=== PATIENT | female | born 1960 | race Caucasian/White ===

== ENCOUNTER 2018-06-24 03:39 | Emergency (ER) | payer OTHER ==
[~2018-06-24] VITALS: Ht 162.6 cm; Wt 82.7 kg
[2018-06-24 03:44] VITALS: Ht 162.6 cm; Wt 82.7 kg
[2018-06-24] MEDS ORDERED: DICLOFENAC SODI50 MG PO (03:46)
[2018-06-24] MEDS ORDERED: BACLOFEN10 MG PO (03:46)
[2018-06-24 04:17] LABS: KETONE - SERUM NEGATIVE (NEGATIVE)
[2018-06-24 04:19] LABS: BASOPHILS 0.4 % (0-2); EOSINOPHILS 1.2 % (0-7); HEMATOCRIT 42.3 % (36.0-48.0); HEMOGLOBIN 14.5 g/dL (12-16); IMMATURE GRANULOCYTES 0.2 % (0-5); LYMPHOCYTES 29.8 % (15-50); MCH 32.3 pg (26.0-34.0); MCHC 34.3 g/dL (31.0-37.0); MCV 94.2 fL (80.0-100.0); MEAN PLATELET VOLUME 10.1 fL (7.4-10.4); MONOCYTES 7.6 % (2-11); NEUTROPHILS 60.8 % (40-80); PLATELET COUNT 154 10x3/uL (130-400); RBC 4.49 10x6/uL (4.00-5.40); WBC 8.1 10x3/uL (4.8-10.8)
[2018-06-24 04:26] LABS: ALBUMIN 3.8 g/dL (3.4-5.0); ALKALINE PHOSPHATASE 68 U/L (46-116); ALT (SGPT) 28 U/L (10-68); BILIRUBIN - TOTAL 0.27 mg/dL (0.2-1.3); CALC OSMOLALITY 281 mosm/kg (275-300); CALCIUM 8.9 mg/dL (8.5-10.1); CARBON DIOXIDE 25.2 mmol/L (21.0-32.0); CHLORIDE - SERUM 105 mmol/L (98-107); CREATININE - SERUM 0.8 mg/dL (0.6-1.3); GLUCOSE 116 mg/dL (74-106); PROTEIN - SERUM 7.3 g/dL (6.4-8.2); SODIUM 140 mmol/L (136-145); UREA NITROGEN 19 mg/dL (7-18); eGFR NON AFRICAN AMERICAN 79 mL/min (90-120)
[2018-06-24 04:29] LABS: CREATINE KINASE 118 UL (21-215)
[2018-06-24 04:35] LABS: C-REACTIVE PROTEIN < 0.2 mg/dL (0.0-0.9); TROPONIN-I < 0.017 ng/mL (0.000-0.060)
[2018-06-24 05:28] VITALS: BP 122/81
== END 2018-06-24 05:29 | disposition home or self-care (01) ==
LOC: D.ER 03:39
PROVIDERS: Family Medicine
DX: M54.10 Radiculopathy, site unspecified (principal)